=== PATIENT | male | born 1995 | race African-American/Black ===

== ENCOUNTER 2020-10-14 11:41 | Emergency (ER) | payer SELFPAY ==
[~2020-10-14] VITALS: Ht 172.7 cm; Wt 72.7 kg
[2020-10-14 12:37] LABS: BASO % 0.4 % (0.0-2.0); EOS # 0.3 (0.0-0.7); EOS % 5.9 % (0-4.0); GRAN # 2.9 (1.4-6.5); GRAN % 55.6 % (42.2-75.2); HEMATOCRIT 46.8 % (42.0-52.0); LYMPH # 1.7 (1.2-3.4); LYMPH % 31.6 % (20.0-51.0); MEAN CELL VOLUME 92 fl (80.0-100.0); MEAN CORPUSCULAR HEMOGLOBIN 31 pg (27.0-31.0); MEAN CORPUSCULAR HGB CONC 34 g/dl (33.0-37.0); MEAN PLATELET VOLUME 9.4 fl (7.4-10.4); MONO # 0.3 (0.1-0.6); MONO % 6.3 % (1.7-9.3); PLATELET COUNT 319 K/mm3 (130-400); RED BLOOD COUNT 5.09 M/mm3 (4.20-5.60); REDCELL DISTRIBUTION WIDTH-CV 11.5 % (11.5-14.5)
[2020-10-14 12:46] LABS: ALANINE AMINOTRANSFERASE 18 U/L (4-49); ALBUMIN 4.8 gm/dL (3.5-5.0); ALKALINE PHOSPHATASE 68 U/L (50-136); ANION GAP 13 mmol/L (7-16); AST,SGOT 28 U/L (15-37); BILIRUBIN,TOTAL 0.7 mg/dL (0.0-1.0); BLOOD UREA NITROGEN 10 mg/dL (9-20); CALCIUM 9.7 mg/dL (8.4-10.2); CARBON DIOXIDE 23 mmol/L (22-30); CHLORIDE 102 mmol/L (98-107); CREATININE, serum 1.14 (0.66-1.25); GLUCOSE 93 mg/dL (74-106); LIPASE 93 U/L (23-300); SODIUM 138 mmol/L (137-145); TOTAL PROTEIN 9.4 gm/dL (6.4-8.2)
[2020-10-14 12:58] LABS: TROPONIN-I < 0.012 ng/mL (0.000-0.035)
[2020-10-14] MEDS ORDERED: PROAIR HFA0.09 MG/AC IH (13:10)
[2020-10-14 13:29] VITALS: BP 137/87; PULSE 100; TEMP 98
== END 2020-10-14 13:18 | disposition home or self-care (01) ==
LOC: COL.ER 11:41
PROVIDERS: Emergency Medicine
DX: R00.2 Palpitations (principal)

== ENCOUNTER 2020-10-17 22:22 | Emergency (ER) | payer SELFPAY ==
[~2020-10-17] VITALS: Ht 172.7 cm; Wt 70.5 kg
[~2020-10-17 22:22] MED LIST: PROAIR HFA0.09 MG/AC IH
[2020-10-17 22:41] VITALS: TEMP 98.6
[2020-10-17 23:15] VITALS: BP 124/72; PULSE 75
== END 2020-10-17 23:15 | disposition home or self-care (01) ==
LOC: COL.ER 22:22
DX: R00.2 Palpitations (principal)